=== PATIENT | female | born 1940 | race Caucasian/White ===

== ENCOUNTER → 2016-08-16 | Outpatient (CLI) | payer OTHER, MEDICAID | LOC: HYPER 06:56 | DX: L89.324 Pressure ulcer of left buttock, stage 4 (principal); J44.9 Chronic obstructive pulmonary disease, unspecified; K21.9 Gastro-esophageal reflux disease without esophagitis; I50.9 Heart failure, unspecified; M05.44 Rheumatoid myopathy with rheumatoid arthritis of hand; M05.19 Rheumatoid lung disease with rheumatoid arthritis of multiple sites; F32.9 Major depressive disorder, single episode, unspecified; Z79.01 Long term (current) use of anticoagulants; Z86.718 Personal history of other venous thrombosis and embolism; Z89.611 Acquired absence of right leg above knee ==

== ENCOUNTER → 2016-11-15 | Outpatient (CLI) | payer OTHER, MEDICAID | LOC: HYPER 07:17 | DX: S81.802D Unspecified open wound, left lower leg, subsequent encounter (principal); L89.324 Pressure ulcer of left buttock, stage 4; L89.312 Pressure ulcer of right buttock, stage 2; L89.151 Pressure ulcer of sacral region, stage 1; J44.9 Chronic obstructive pulmonary disease, unspecified; K21.9 Gastro-esophageal reflux disease without esophagitis; M05.44 Rheumatoid myopathy with rheumatoid arthritis of hand; M05.19 Rheumatoid lung disease with rheumatoid arthritis of multiple sites; F32.9 Major depressive disorder, single episode, unspecified; J84.10 Pulmonary fibrosis, unspecified; M06.9 Rheumatoid arthritis, unspecified; I50.9 Heart failure, unspecified; Z86.718 Personal history of other venous thrombosis and embolism; Z89.611 Acquired absence of right leg above knee; X58.XXXD Exposure to other specified factors, subsequent encounter ==

== ENCOUNTER → 2016-12-29 | Outpatient (CLI) | payer OTHER, MEDICAID | LOC: HYPER 07:21 | DX: L89.324 Pressure ulcer of left buttock, stage 4 (principal); L89.312 Pressure ulcer of right buttock, stage 2; L89.151 Pressure ulcer of sacral region, stage 1; J44.9 Chronic obstructive pulmonary disease, unspecified; K21.9 Gastro-esophageal reflux disease without esophagitis; M05.44 Rheumatoid myopathy with rheumatoid arthritis of hand; M05.19 Rheumatoid lung disease with rheumatoid arthritis of multiple sites; F32.9 Major depressive disorder, single episode, unspecified; I50.9 Heart failure, unspecified; Z86.718 Personal history of other venous thrombosis and embolism; Z89.611 Acquired absence of right leg above knee ==

== ENCOUNTER → 2017-01-10 | Outpatient (CLI) | payer OTHER, MEDICAID ==
[2017-01-10 10:42] LABS: CREATININE 0.6 mg/dL (0.6-1.0)
== END ==
LOC: MRI 09:58
PROVIDERS: Emergency Medicine
DX: L89.329 Pressure ulcer of left buttock, unspecified stage (principal)